=== PATIENT | male | born 1945 | race Caucasian/White ===

== ENCOUNTER 2021-04-07 12:04 | Observation (INO) | payer MEDICARE, OTHER ==
[~2021-04-07] VITALS: Ht 175.3 cm; Wt 90.7 kg
--- NOTE | 2021-04-07 12:10 | NUR ---
PATIENT ROOMED WITH AT SIDE. MD AT BEDSIDE IMMEDIATELTY IN TREATMENT AREA. PATIENT IN NO ACUTE DISTRESS. CONNECTED TO MONITOR.
[2021-04-07] MEDS ORDERED: ASPIRIN LOW DOS81 M1 PO (12:28)
[2021-04-07] MEDS ORDERED: HYDROCHLOROT25 MG PO (12:28)
[2021-04-07] MEDS ORDERED: LIPITOR20 MG PO (12:28)
--- NOTE | 2021-04-07 12:28 | NUR ---
PT REPORTS THAT HE TOOK TYLENOL THIS MORNING AROUND 8AM DUE TO HEADACHE, "PROBABLY DRANK TOO MUCH LAST NIGHT". PT HAS NOT BEEN TAKING HCTZ OR CHOLESTEROL MEDICATION FOR THE PAST COUPLE OF WEEKS. TOOK GERD MED THIS MORNING.
[2021-04-07] MEDS ORDERED: [UNRECOGNIZED DRUG - OTHER] PO (12:29)
[2021-04-07] MEDS ORDERED: OMEPRAZOLE10 MG PO (12:29)
--- NOTE | 2021-04-07 12:30 | NUR ---
PT ADVISED THAT A NEURO CONSULT HAS BEEN ORDERED AND WILL SPEAK VIA VIDEO CHAT WITH NEUROLOGY.
[2021-04-07 12:31] LABS: HEMATOCRIT 49.2 % (39.0-50.0); IMMATURE GRANULOCYTES 0.1 % (0.0-5.0); MEAN CELL VOLUME 96.1 fL CALC (80.0-100.0); MEAN CORPUSCULAR HGB 33.2 pG CALC (26.0-32.0); MEAN CORPUSCULAR HGB CONC 34.6 g/dL CAL (32.0-36.0); NEUT# 3.41 thou/uL (1.82-7.42); RED BLOOD COUNT 5.12 mill/uL (4.70-6.10); RED CELL DISTRI WIDTH 12.7 % (11.5-15.5)
[2021-04-07 12:46] LABS: ALBUMIN 4.5 g/dL (3.2-5.0); ALKALINE PHOSPHATASE 95 u/l (38-126); ANION GAP 14 (6-22 (CALC)); BILIRUBIN, TOTAL 0.8 mg/dL (0.0-1.4); BUN 17 mg/dL (8-23); BUN/CREATININE RATIO 19 (12-20 (CALC)); CARBON DIOXIDE 27 mmol/l (22-30); CHLORIDE 106 mmol/l (95-108); CREATININE 0.9 mg/dL (0.7-1.3); GFR > 60 ML/MIN (>=60 (CALC)); GFR FOR AFR.AMER. > 60 ML/MIN (>=60 (CALC)); LIPASE 45 u/l (23-300); POTASSIUM 4.2 mmol/l (3.5-5.1); SGOT/AST 37 u/l (19-48); SODIUM 143 mmol/l (137-146)
[2021-04-07 13:12] LABS: ACT PARTIAL THROMBO TIME 25.6 SECONDS (20.0-32.5); PROTHROMBIN TIME 10.4 SECONDS (9.0-12.5)
--- NOTE | 2021-04-07 13:30 | NUR ---
PT STABLE AT THIS TIME, AT THE BEDSIDE. ADVISED OF WAIT TIME.
--- NOTE | 2021-04-07 14:15 | NUR ---
VIDEO SCREEN TAKEN INTO PT ROOM FOR NEURO EVAL.
--- NOTE | 2021-04-07 14:40 | NUR ---
PT BEING EXAMINED BY NEUROLOGY, DR FABIAN VIA VIDEO
--- NOTE | 2021-04-07 15:55 | NUR ---
PT PLACED ON OXYGEN VIA NC AT 2L/MIN TO MAINTAIN ABOVE 90%
--- NOTE | 2021-04-07 16:12 | NUR ---
PT GIVEN URINAL AND ASKED TO PROVIDE SAMPLE.
--- NOTE | 2021-04-07 16:20 | NUR ---
URINE SAMPLE COLLECTED AND TAKEN TO LAB.
--- NOTE | 2021-04-07 16:38 | NUR ---
SBAR REPORT GIVEN TO CHRISTOPH MASTERSON. PT TO GO TO ROOM 281 MED/SURG.
--- NOTE | 2021-04-07 16:47 | NUR ---
PT TAKEN TO MED/SURG WITH TELE IN PLACE VIA WHEELCHAIR IN STABLE CONDITION. PT'S PAPERWORK AND BELONGINGS HANDED OFF TO RN.
[2021-04-07 16:49] LABS: URINE BILIRUBIN - DIPSTICK NEGATIVE (NEGATIVE); URINE BLOOD DIPSTICK NEGATIVE (NEGATIVE); URINE COLOR YELLOW; URINE GLUCOSE - DIPSTICK NEGATIVE (NEGATIVE); URINE KETONE NEGATIVE (NEGATIVE); URINE LEUK ESTERASE NEGATIVE (NEGATIVE); URINE PROTEIN - DIPSTICK NEGATIVE (NEG-TRACE); URINE SPECIFIC GRAVITY 1.025; URINE UROBILINOGEN - DIPSTICK 0.2 E.U./dL (0.2)
[2021-04-07 16:51] LABS: URINE NITRITE - DIPSTICK NEGATIVE (Negative)
--- NOTE | 2021-04-07 16:55 | NUR ---
PATIENT CAME FROM ER VIA WHEELCHAIR BY THE ER NURSE. SAFETY PRECAUTIONS REINFROCED AND CALL LIGHT.
[2021-04-07 17:07] VITALS: BP 163/80
--- NOTE | 2021-04-07 17:18 | NUR ---
ASSESSMENT DONE. PATIENT IS ALERT AND ORIENT X3. PATIENT DENIES PAIN. TELE IN PLACE #[id number]. 20 LAC THAT APPEARS HEALTHY. RESPS EVEN AND UNLABORED. O2 AT 2L VIA NC. PATIENT STATED HE STILL SEE BLURRY. PATIENT DENIES NEEDS. SAFETY PRECAUTIONS REINFORCED AND CALL LIGHT IN REACH.
[2021-04-07 19:40] VITALS: BP 149/87
--- NOTE | 2021-04-07 20:00 | NUR ---
PATIENT ALERT ORIENTED X 3, ABLE TO MAKE NEEDS KNONW, CLEAR SPEECH,NO DRIFTS NOTED BILAT ARMS AND LEGS, NO FACIAL DROOP NOTED, ABLE TO OPEN AND CLOSED EYES, AND CAN FOLLOW COMMANDS, PATIENT HAS G 20 ON LAC SALINE LOCK PATENT FLUSHES WELL, REMAINS ON TELE SR 67 WITH 1ST AVB, CLEAR LUNG SOUNDS, ACTIVE BOWEL SOUNDS, CONTINENT OF BLADDER, DENIES DISCOMFORTRS AT THIS TIME, CALL LIGHT AT REACH.
[2021-04-07 23:10] VITALS: BP 132/74
--- NOTE | 2021-04-07 23:11 | NUR ---
PATIENT RESTING IN BED, EASY TO AWAKEN, ALERT ORIENTED, DENIES PAIN AT THIS TIME, BREATHING UNLABORED, REMAINS ON O2 @ 2lpm, CALL LIGHT AT REACH.
[2021-04-08 04:00] VITALS: BP 128/76
--- NOTE | 2021-04-08 04:48 | NUR ---
PATIENT APPEARS TO BE SLEEPING EASY TO AWAKEN, DENIES PAIN OR DISCOMFORTS, BREATHING UNLABORED, VITAL SIGNS TAKEN RECORDED CALL LIGHT AT REACH.
[2021-04-08 05:16] LABS: HEMATOCRIT 43.8 % (39.0-50.0); MEAN CELL VOLUME 96.9 fL CALC (80.0-100.0); RED BLOOD COUNT 4.52 mill/uL (4.70-6.10); RED CELL DISTRI WIDTH 12.8 % (11.5-15.5)
[2021-04-08 05:17] LABS: HEMOGLOBIN 14.9 g/dl (14.0-18.0)
[2021-04-08 05:37] LABS: ALBUMIN 3.5 g/dL (3.2-5.0); ALKALINE PHOSPHATASE 84 u/l (38-126); ANION GAP 11 (6-22 (CALC)); BILIRUBIN, TOTAL 0.5 mg/dL (0.0-1.4); BUN 24 mg/dL (8-23); BUN/CREATININE RATIO 29 (12-20 (CALC)); CALCULATED LDLCHOLESTEROL 70 mg/dL (62-129 (CALC)); CARBON DIOXIDE 27 mmol/l (22-30); CHLORIDE 105 mmol/l (95-108); CHOLESTEROL HDL RATIO 3.4 (<4.4 (CALC)); CREATININE 0.8 mg/dL (0.7-1.3); GFR > 60 ML/MIN (>=60 (CALC)); GFR FOR AFR.AMER. > 60 ML/MIN (>=60 (CALC)); HDL CHOLESTEROL 40 mg/dL (>=40); POTASSIUM 4.1 mmol/l (3.5-5.1); SGOT/AST 28 u/l (19-48); SODIUM 139 mmol/l (137-146); TOTAL CHOLESTEROL 136 mg/dl (0-199); TOTAL PROTEIN 6.1 g/dL (6.3-8.2); TOTAL TRIGLYCERIDES 127 mg/dl (30-149); VLDL CHOLESTROL 25 mg/dl (0-38 (CALC))
--- NOTE | 2021-04-08 09:30 | NUR ---
RECIVE REPORT FROM KAM HAWTHORNE. PATIENT STABLE AT THIS TIME. EDUCATED ABOUT PLAN OF CARE AND MEDICATIONS FOR TODAY. PATIENT REPORT UNDERSTAND.
[2021-04-08 10:26] VITALS: BP 147/82
[2021-04-08] MEDS ORDERED: HYDROCHLOROT25 MG PO (11:51)
--- NOTE | 2021-04-08 14:46 | NUR ---
PATIENT ALERT AND ORIENTD. STABLE AT THIS TIME. DISCHARGED EEDUCATED ABOUT FOLLOW UP WITH PCP AND OPHTALMOLOGIST DOCTOR. PATIENT REFER [facility]ER[facility]AN
== END 2021-04-08 15:00 | disposition home or self-care (01) ==
LOC: ED 12:04 → ED-I 15:22 → ED 15:39 → MS2 15:40
PROVIDERS: ADMIT Internal Medicine; ATTEND Internal Medicine
DX: H53.8 Other visual disturbances (principal); H35.30 Unspecified macular degeneration; I10 Essential (primary) hypertension; E78.5 Hyperlipidemia, unspecified; K21.9 Gastro-esophageal reflux disease without esophagitis; T46.5X6A Underdosing of other antihypertensive drugs, initial encounter; Z91.128 Patient's intentional underdosing of medication regimen for other reason; Z20.822 Contact with and (suspected) exposure to COVID-19
CPT/HCPCS: G0378; Q9967